=== PATIENT | female | born 1990 | race African-American/Black ===

== ENCOUNTER 2016-12-22 14:47 | Emergency (ER) | payer OTHER ==
[~2016-12-22] VITALS: Ht 165.1 cm; Wt 61.4 kg
[2016-12-22] MEDS ORDERED: NS 1,000 ML IV ONE (15:15)
[2016-12-22 15:35] LABS: BASO # 0.1 K/mm3 (0.0-0.2); BASO % 1.4 % (0.0-1.0); EOS # 0.2 K/mm3 (0.0-0.50); EOS % 2.2 % (0.0-3.0); LARGE UNSTAINED CELL # 0.2 K/mm3 (0.0-0.4); LARGE UNSTAINED CELL % 2.8 % (0.0-4.0); LYMPH # 2.3 K/mm3 (1.5-6.5); LYMPH % 31.7 % (24.0-44.0); MEAN CORPUSCULAR HGB CONC 33.3 g/dl (32.0-36.5); MONO # 0.3 K/mm3 (0.0-0.8); MONO % 3.5 % (0.0-5.0); NEUTROPHILS # 4.2 K/mm3 (1.8-7.7); NEUTROPHILS % 58.4 % (36.0-66.0); PLATELET COUNT, AUTOMATED 282 k/mm3 (150-450); WHITE BLOOD COUNT 7.1 K/mm3 (4.0-10.0)
[2016-12-22 15:48] LABS: CONTROL LINE HCG INT CTR LINE PRESENT
[2016-12-22 15:53] LABS: ANION GAP 5 MEQ/L (8-16); BLOOD UREA NITROGEN 11 MG/DL (7-18); CALCIUM LEVEL 9.1 MG/DL (8.5-10.1); CARBON DIOXIDE LEVEL 30 MEQ/L (21-32); CHLORIDE LEVEL 105 MEQ/L (98-107); CREATININE FOR GFR 0.74 MG/DL (0.55-1.02); GLOMERULAR FILTRATION RATE > 60.0 (>60); GLUCOSE, FASTING 79 MG/DL (70-105); POTASSIUM SERUM 3.9 MEQ/L (3.5-5.1); SODIUM LEVEL 140 MEQ/L (136-145)
[2016-12-22 16:58] VITALS: BP 137/89
--- NOTE | 2016-12-22 19:13 | ECGEPIP ---
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
== END 2016-12-22 17:00 | disposition home or self-care (01) ==
LOC: EDBD 14:47 → M ED 14:47
DX: R55 Syncope and collapse (principal)

== ENCOUNTER 2017-10-12 18:48 | Emergency (ER) | payer OTHER ==
[2017-10-12 19:37] LABS: KETONE, URINE AUTO RFX NEGATIVE (NEGATIVE); LEUKOCYTE ESTERASE UR AUTO RFX NEGATIVE (NEGATIVE); MUCUS, URINE RFX SMALL (NEGATIVE); NITRITE, URINE AUTO RFX NEGATIVE (NEGATIVE); RBC, URINE AUTO RFX 1 /HPF (0-3); SPECIFIC GRAVITY UR AUTO RFX 1.021 (1.002-1.035); SQUAM EPITHELIAL CELL UR AURFX 1 /HPF (0-6); WBC, URINE AUTO RFX 2 /HPF (0-3)
[2017-10-12] MEDS: METOCLOPRAMIDE INJ 10MG/2ML VIAL (J2765) IV (20:30)
[2017-10-12] MEDS: diphenhydrAMINE INJ 50MG/ML VIAL (J1200) IV (20:30)
[2017-10-12] MEDS: NS 1,000 ML IV (20:33)
[2017-10-12 20:35] LABS: BASO % 0.4 % (0.0-1.0); EOS # 0.2 10^3/uL (0.0-0.50); EOS % 3.5 % (0.0-3.0); HEMATOCRIT 37.5 % (36.0-47.0); HEMOGLOBIN 12.4 g/dl (12.0-15.5); IMMATURE GRANULOCYTE % 0.2 % (0-3.0); LYMPH # 2.2 10^3/uL (1.5-6.5); LYMPH % 41.1 % (24.0-44.0); MEAN CORPUSCULAR HEMOGLOBIN 27.3 pg (27.0-33.0); MEAN CORPUSCULAR HGB CONC 33.1 g/dl (32.0-36.5); MEAN CORPUSCULAR VOLUME 82.4 fl (80.0-96.0); MONO # 0.4 10^3/uL (0.0-0.8); MONO % 7.6 % (0.0-5.0); NEUTROPHILS # 2.6 10^3/uL (1.8-7.7); NEUTROPHILS % 47.2 % (36.0-66.0); PLATELET COUNT, AUTOMATED 305 10^3/uL (150-450); RED BLOOD COUNT 4.55 10^6/uL (4.00-5.40); RED CELL DISTRIBUTION WIDTH 13.4 % (11.5-14.5); WHITE BLOOD COUNT 5.4 10^3/uL (4.0-10.0)
[2017-10-12 21:16] LABS: ANION GAP 8 MEQ/L (8-16); BLOOD UREA NITROGEN 12 MG/DL (7-18); CALCIUM LEVEL 8.8 MG/DL (8.5-10.1); CARBON DIOXIDE LEVEL 25 MEQ/L (21-32); CHLORIDE LEVEL 105 MEQ/L (98-107); CREATININE FOR GFR 0.78 MG/DL (0.55-1.30); GLOMERULAR FILTRATION RATE > 60.0 (>60); GLUCOSE, FASTING 75 MG/DL (70-100); HCG, SERUM QUANTITATIVE 1154 MIU/ML; SODIUM LEVEL 138 MEQ/L (136-145)
== END 2017-10-12 23:45 | disposition home or self-care (01) ==
LOC: M ED 18:48
DX: O21.9 Vomiting of pregnancy, unspecified (principal); O26.891 Other specified pregnancy related conditions, first trimester; O34.81 Maternal care for other abnormalities of pelvic organs, first trimester; N83.201 Unspecified ovarian cyst, right side; O99.89 Other specified diseases and conditions complicating pregnancy, childbirth and the puerperium; N94.9 Unspecified condition associated with female genital organs and menstrual cycle; O99.331 Smoking (tobacco) complicating pregnancy, first trimester; F17.210 Nicotine dependence, cigarettes, uncomplicated; Z3A.00 Weeks of gestation of pregnancy not specified
CPT/HCPCS: J1200

== ENCOUNTER 2017-10-24 15:45 | Emergency (ER) | payer OTHER ==
[2017-10-25] MEDS ORDERED: ACETAMINOPHEN 650 MG SUPP As Ordered (22:33)
[2017-10-25] MEDS ORDERED: BUPIVACAINE HCL 0.25% 30 ML VIAL As Ordered (22:33)
== END 2017-10-24 16:55 | disposition left against medical advice (07) ==
LOC: M ED 15:45
DX: Z53.29 Procedure and treatment not carried out because of patient's decision for other reasons (principal)

== ENCOUNTER 2017-10-25 18:12 | Day surgery (SDC) | payer OTHER ==
[2017-10-25] MEDS ORDERED: fentaNYL 250 MCG/5 ML INJECTION (J3010) As Ordered ×2 (22:26)
[2017-10-25] MEDS ORDERED: PROPOFOL 200 MG/20 ML VIAL As Ordered ×4 (22:27)
[2017-10-25] MEDS ORDERED: MIDAZOLAM INJ 2 MG/2 ML VIAL (J2250) As Ordered ×2 (22:27)
[2017-10-25] MEDS ORDERED: ONDANSETRON 4MG/2ML VIAL (J2405) As Ordered ×2 (22:27)
[2017-10-25] MEDS ORDERED: dexameTHASONE 4 MG/ML 1ML VIAL (J1100) As Ordered ×4 (22:27)
[2017-10-25] MEDS ORDERED: LIDOCAINE 2% INJ 100 MG/5 ML SDV (FOR ANES.) As Ordered ×2 (22:27)
[2017-10-25] MEDS ORDERED: ROCURONIUM BROMIDE 50 MG/5 ML VIAL As Ordered ×2 (22:27)
[2017-10-25] MEDS ORDERED: KETOROLAC 60 MG/2 ML VIAL (J1885) As Ordered ×2 (22:28)
[2017-10-25] MEDS ORDERED: NEOSTIGMINE 10 MG/10 ML VIAL (J2710) As Ordered ×2 (22:28)
[2017-10-25] MEDS ORDERED: GLYCOPYRROLATE INJ 0.2 MG/ML 2 ML VIAL As Ordered ×2 (22:28)
[2017-10-26] MEDS ORDERED: ONDANSETRON 4MG/2ML VIAL (J2405) As Ordered ×2 (00:08)
[2017-10-26] MEDS: ONDANSETRON 4MG/2ML VIAL (J2405) IV ×2 (00:15)
[2017-10-26] MEDS ORDERED: HYDROMORPHONE HCL 0.5 MG/ 0.5 ML SYRINGE (J1170 PER 1) IV ×2 (00:15)
[2017-10-26] MEDS: LR 1,000 ML IV ×2 (00:15)
[2017-10-26] MEDS ORDERED: fentaNYL 100 MCG/2 ML INJECTION (J3010) As Ordered ×2 (00:25)
[2017-10-26] MEDS ORDERED: PERCOCET 5MG/325MG TAB As Ordered ×2 (00:25)
[2017-10-26] MEDS: fentaNYL 100 MCG/2 ML INJECTION (J3010) IV ×6 (00:30→00:40)
[2017-10-26] MEDS: PERCOCET 5MG/325MG TAB PO ×2 (00:30)
[2017-10-26] MEDS ORDERED: KETOROLAC 30 MG/ML VIAL (J1885) IV ×2 (00:45)
[2017-10-26] MEDS ORDERED: IBUPROFEN 800 MG TAB PO ×2 (00:45)
[2017-10-26 03:06] LABS: ALBUMIN/GLOBULIN RATIO 1.05 (1.00-1.93); ALKALINE PHOSPHATASE 53 U/L (45-117); ALT/SGPT 20 U/L (12-78); ANION GAP 6 MEQ/L (8-16); AST/SGOT 14 U/L (7-37); BILIRUBIN,TOTAL 0.2 MG/DL (0.2-1.0); BLOOD UREA NITROGEN 15 MG/DL (7-18); CARBON DIOXIDE LEVEL 27 MEQ/L (21-32); CHLORIDE LEVEL 104 MEQ/L (98-107); CREATININE FOR GFR 0.74 MG/DL (0.55-1.30); GLOMERULAR FILTRATION RATE > 60.0 (>60); GLUCOSE, FASTING 83 MG/DL (70-100); HCG, SERUM QUANTITATIVE 2772 MIU/ML; LIPASE 240 U/L (73-393); POTASSIUM SERUM 4.1 MEQ/L (3.5-5.1); SODIUM LEVEL 137 MEQ/L (136-145); TOTAL PROTEIN 7.8 GM/DL (6.4-8.2)
[2017-10-26 04:14] LABS: BASO % 0.5 % (0.0-1.0); EOS # 0.2 10^3/uL (0.0-0.50); EOS % 3.9 % (0.0-3.0); HEMATOCRIT 38.1 % (36.0-47.0); HEMOGLOBIN 12.5 g/dl (12.0-15.5); IMMATURE GRANULOCYTE % 0.2 % (0-3.0); LYMPH # 2.3 10^3/uL (1.5-6.5); LYMPH % 39.3 % (24.0-44.0); MEAN CORPUSCULAR HEMOGLOBIN 27.2 pg (27.0-33.0); MEAN CORPUSCULAR HGB CONC 32.8 g/dl (32.0-36.5); MONO # 0.5 10^3/uL (0.0-0.8); MONO % 7.6 % (0.0-5.0); NEUTROPHILS # 2.9 10^3/uL (1.8-7.7); NEUTROPHILS % 48.5 % (36.0-66.0); PLATELET COUNT, AUTOMATED 319 10^3/uL (150-450); RED BLOOD COUNT 4.59 10^6/uL (4.00-5.40); RED CELL DISTRIBUTION WIDTH 13.9 % (11.5-14.5)
[2017-10-26 04:32] LABS: APPEARANCE, URINE CLEAR (CLEAR); BACTERIA, URINE AUTO 1+ (NEGATIVE); BILIRUBIN, URINE AUTO NEGATIVE (NEGATIVE); BLOOD, URINE BLOOD NEGATIVE (NEGATIVE); COLOR, URINE YELLOW (YELLOW); GLUCOSE, URINE (UA) AUTO NEGATIVE (NEGATIVE); KETONE, URINE AUTO NEGATIVE (NEGATIVE); LEUKOCYTE ESTERASE, URINE AUTO TRACE (NEGATIVE); MUCUS, URINE SMALL (NEGATIVE); NITRITE, URINE AUTO NEGATIVE (NEGATIVE); PROTEIN, URINE AUTO NEGATIVE (NEGATIVE); RBC, URINE AUTO 1 /HPF (0-3); SPECIFIC GRAVITY URINE AUTO 1.018 (1.002-1.035); SQUAMOUS EPITHELIAL CELL UR AU 1 /HPF (0-6); UROBILINOGEN, URINE AUTO 0.2 mg/dL (0.0-2.0); WBC, URINE AUTO 4 /HPF (0-3)
== END 2017-10-26 09:15 | disposition home or self-care (01) ==
LOC: M ED 18:12 → M PED 10-26 09:15 → M OPCLIPED 10-26 → M PED 10-26 01:00 → M ED 10-26 → M OPCLIPED 10-26 → M PED 10-26 → M ED 10-26 01:00 → M OPCLIPED 18:13 → M ED 22:55 → M PED 10-26 01:00 → M OPCLIPED 10-26 09:15
DX: O00.102 Left tubal pregnancy without intrauterine pregnancy (principal)
CPT/HCPCS: 59150

== ENCOUNTER 2018-04-05 08:18 | Emergency (ER) | payer OTHER | END 2018-04-05 09:10 | disposition home or self-care (01) | LOC: M ED 08:18 | DX: J06.9 Acute upper respiratory infection, unspecified (principal); H50.811 Duane's syndrome, right eye; H50.812 Duane's syndrome, left eye; Z79.3 Long term (current) use of hormonal contraceptives | CPT/HCPCS: 99282 ==

== ENCOUNTER 2018-06-17 11:23 | Emergency (ER) | payer OTHER ==
[~2018-06-17] VITALS: Ht 165.1 cm; Wt 70.5 kg
[~2018-06-17 11:23] MED LIST: IBUP1TAB7 PO; REGL10TA6 PO
[2018-06-17 11:55] LABS: AMORPHOUS SEDIMENT SMALL (NEGATIVE); APPEARANCE, URINE CLEAR (CLEAR); BACTERIA, URINE AUTO NEGATIVE (NEGATIVE); BILIRUBIN, URINE AUTO NEGATIVE (NEGATIVE); BLOOD, URINE BLOOD 3+ (NEGATIVE); COLOR, URINE STRAW (YELLOW); GLUCOSE, URINE (UA) AUTO NEGATIVE (NEGATIVE); KETONE, URINE AUTO NEGATIVE (NEGATIVE); LEUKOCYTE ESTERASE, URINE AUTO NEGATIVE (NEGATIVE); NITRITE, URINE AUTO NEGATIVE (NEGATIVE); PROTEIN, URINE AUTO NEGATIVE (NEGATIVE); RBC, URINE AUTO 54 /HPF (0-3); SPECIFIC GRAVITY URINE AUTO 1.012 (1.002-1.035); SQUAMOUS EPITHELIAL CELL UR AU 1 /HPF (0-6); UROBILINOGEN, URINE AUTO 0.2 mg/dL (0.0-2.0); WBC, URINE AUTO 2 /HPF (0-3)
[2018-06-17] MEDS ORDERED: NS 1,000 ML IV ONE (12:15)
[2018-06-17 12:34] LABS: BASO % 0.5 % (0.0-1.0); EOS # 0.2 10^3/uL (0.0-0.50); EOS % 4.3 % (0.0-3.0); HEMATOCRIT 37.5 % (36.0-47.0); HEMOGLOBIN 12.1 g/dl (12.0-15.5); LYMPH # 1.7 10^3/uL (1.5-6.5); LYMPH % 44.2 % (24.0-44.0); MEAN CORPUSCULAR HEMOGLOBIN 26.7 pg (27.0-33.0); MEAN CORPUSCULAR HGB CONC 32.3 g/dl (32.0-36.5); MEAN CORPUSCULAR VOLUME 82.6 fl (80.0-96.0); MONO # 0.4 10^3/uL (0.0-0.8); MONO % 9.7 % (0.0-5.0); NEUTROPHILS # 1.6 10^3/uL (1.8-7.7); PLATELET COUNT, AUTOMATED 317 10^3/uL (150-450); RED BLOOD COUNT 4.54 10^6/uL (4.00-5.40); WHITE BLOOD COUNT 3.9 10^3/uL (4.0-10.0)
[2018-06-17 12:49] LABS: INR 1.05; PARTIAL THROMBOPLASTIN TIME 25.5 SECONDS (25.4-37.6); PROTHROMBIN TIME 13.9 SECONDS (12.1-14.4)
[2018-06-17 13:01] LABS: BILIRUBIN,TOTAL 0.3 MG/DL (0.2-1.0)
[2018-06-17 13:02] LABS: ALBUMIN 3.5 GM/DL (3.2-5.2); BILIRUBIN,DIRECT 0.1 MG/DL (0.0-0.2); TOTAL PROTEIN 7.2 GM/DL (6.4-8.2)
[2018-06-17 13:04] LABS: BLOOD UREA NITROGEN 10 MG/DL (7-18); CALCIUM LEVEL 8.8 MG/DL (8.5-10.1); CARBON DIOXIDE LEVEL 25 MEQ/L (21-32); CHLORIDE LEVEL 107 MEQ/L (98-107); CREATININE FOR GFR 0.77 MG/DL (0.55-1.30); GLOMERULAR FILTRATION RATE > 60.0 (>60); GLUCOSE, FASTING 80 MG/DL (70-100); HCG, SERUM QUANTITATIVE < 1.0 MIU/ML; POTASSIUM SERUM 4.4 MEQ/L (3.5-5.1); SODIUM LEVEL 140 MEQ/L (136-145)
[2018-06-17 14:04] LABS: CHLAMYDIA DNA AMPLIFICATION NEGATIVE (NEGATIVE); GC DNA AMPLIFICATION NEGATIVE (NEGATIVE)
[2018-06-17 15:39] VITALS: BP 132/82
--- NOTE | 2018-06-18 07:43 | REP ---
PELVIC AND ENDOVAGINAL PROBE ULTRASOUND: 06/17/2018. Clinical history: Pelvic pain, heavy vaginal bleeding. The patient states last LMP was 06/07/2018. Findings: No prior study. Transabdominal and endovaginal probes were utilized. Bladder measured 8.9 x 8.5 x 5.9 cm, well filled. Uterus anteverted and not enlarged and measures 10.1 x 3.8 x 5.6 cm. There is no contour abnormality. The central endometrial echogenic stripe is centrally located and has a homogeneous appearance measuring 3 mm in thickness. No uterine mass or contour abnormality. Subtle uterine heterogeneity may be present. No free fluid in the cul-de-sac. Visualized cervix unremarkable. The right ovary 4 x 1.3 x 1.7 cm and the left ovary 3.1 x 1.3 x 1.9 cm. Neither ovary shows solid or cystic mass on Doppler tracing. There are a few subcentimeter follicles. No adjacent free fluid to either ovary. Doppler tracing shows resistive index 0.63 for the right ovary and 0.63 for the left ovary, normal. Impression: 1. Uterus not enlarged and with normal central echogenic endometrial stripe. No contour abnormality or discrete uterine mass. 2. Ovaries normal in size with a few small follicles as anatomic normal findings. Normal blood flow on color and Doppler tracings, no torsion. No mass, no free fluid. Electronically Signed by Laith Lopez MD 06/18/2018 01:01 P
== END 2018-06-17 15:50 | disposition home or self-care (01) ==
LOC: M ED 11:23
DX: N94.6 Dysmenorrhea, unspecified (principal); F17.210 Nicotine dependence, cigarettes, uncomplicated

== ENCOUNTER 2018-12-31 11:09 | Emergency (ER) | payer OTHER ==
[~2018-12-31] VITALS: Ht 165.1 cm; Wt 75.0 kg
[2018-12-31] MEDS ORDERED: PREN29TA4 PO (11:24)
[2018-12-31 12:15] LABS: APPEARANCE, URINE CLEAR (CLEAR); BACTERIA, URINE AUTO 1+ (NEGATIVE); BILIRUBIN, URINE AUTO NEGATIVE (NEGATIVE); BLOOD, URINE BLOOD NEGATIVE (NEGATIVE); COLOR, URINE AMBER (YELLOW); GLUCOSE, URINE (UA) AUTO NEGATIVE (NEGATIVE); KETONE, URINE AUTO NEGATIVE (NEGATIVE); LEUKOCYTE ESTERASE, URINE AUTO TRACE (NEGATIVE); MUCUS, URINE SMALL (NEGATIVE); NITRITE, URINE AUTO NEGATIVE (NEGATIVE); PROTEIN, URINE AUTO NEGATIVE (NEGATIVE); RBC, URINE AUTO 2 /HPF (0-3); SPECIFIC GRAVITY URINE AUTO 1.015 (1.002-1.035); SQUAMOUS EPITHELIAL CELL UR AU 2 /HPF (0-6); UROBILINOGEN, URINE AUTO 0.2 mg/dL (0.0-2.0); WBC, URINE AUTO 10 /HPF (0-3)
[2018-12-31] MEDS ORDERED: NS 1,000 ML IV ONE (12:45)
--- NOTE | 2018-12-31 12:50 | REP ---
FIRST TRIMESTER ULTRASOUND: Real-time sonographic of gravid uterus is performed utilizing transabdominal technique. There is a single living intrauterine gestation, estimated gestational age is 7 weeks 3 days based on crown-rump length of 12 mm, EDC 08/16/2019. heart rate 153 beats per minute. There is no subchorionic hemorrhage. There is no evidence of ovarian torsion, blood flow is seen in each ovary with duplex Doppler evaluation. Electronically Signed by Ishmael Sanchez MD 01/02/2019 07:46 A
[2018-12-31] MEDS ORDERED: ACETAMINOPHEN TAB 650MG DOSE (2X325MG) PO ONE (13:30)
[2018-12-31] MEDS ORDERED: ONDANSETRON 4MG/2ML VIAL (J2405) IV ONE (13:30)
[2018-12-31 14:12] LABS: BASO % 0.3 % (0.0-1.0); EOS # 0.1 10^3/uL (0.0-0.50); EOS % 1.6 % (0.0-3.0); HEMATOCRIT 40.2 % (36.0-47.0); HEMOGLOBIN 13.2 g/dl (12.0-15.5); LYMPH # 2.5 10^3/uL (1.5-6.5); LYMPH % 36.6 % (24.0-44.0); MEAN CORPUSCULAR HEMOGLOBIN 27.6 pg (27.0-33.0); MEAN CORPUSCULAR HGB CONC 32.8 g/dl (32.0-36.5); MEAN CORPUSCULAR VOLUME 84.1 fl (80.0-96.0); MONO # 0.5 10^3/uL (0.0-0.8); MONO % 7.5 % (0.0-5.0); NEUTROPHILS # 3.7 10^3/uL (1.8-7.7); NEUTROPHILS % 53.9 % (36.0-66.0); PLATELET COUNT, AUTOMATED 321 10^3/uL (150-450); RED BLOOD COUNT 4.78 10^6/uL (4.00-5.40); WHITE BLOOD COUNT 6.8 10^3/uL (4.0-10.0)
[2018-12-31 14:35] LABS: BLOOD UREA NITROGEN 8 MG/DL (7-18); CALCIUM LEVEL 9.6 MG/DL (8.5-10.1); CARBON DIOXIDE LEVEL 28 MEQ/L (21-32); CHLORIDE LEVEL 104 MEQ/L (98-107); CREATININE FOR GFR 0.65 MG/DL (0.55-1.30); GLOMERULAR FILTRATION RATE > 60.0 (>60); GLUCOSE, FASTING 62 MG/DL (70-100); HCG, SERUM QUANTITATIVE 63524 MIU/ML; POTASSIUM SERUM 3.9 MEQ/L (3.5-5.1); SODIUM LEVEL 138 MEQ/L (136-145)
[2018-12-31 15:22] VITALS: BP 120/71
[2018-12-31 17:27] LABS: CHLAMYDIA DNA AMPLIFICATION NEGATIVE (NEGATIVE); GC DNA AMPLIFICATION NEGATIVE (NEGATIVE)
[2019-01-02] MEDS ORDERED: MACR100C43 PO (10:35)
== END 2018-12-31 15:26 | disposition home or self-care (01) ==
LOC: M ED 11:09
DX: O20.0 Threatened abortion (principal); O99.281 Endocrine, nutritional and metabolic diseases complicating pregnancy, first trimester; Z3A.01 Less than 8 weeks gestation of pregnancy; Z87.891 Personal history of nicotine dependence; Z79.899 Other long term (current) drug therapy
CPT/HCPCS: 36415; 76801; 80048; 81001; 84702; 85025; 86850; 86900; 86901; 87088; 87186; 87210; 87491; 87591; 93976; 96361; 96374; 99284; J2405

== ENCOUNTER 2019-02-03 03:52 | Emergency (ER) | payer OTHER ==
[~2019-02-03] VITALS: Ht 162.6 cm; Wt 78.4 kg
[~2019-02-03 03:52] MED LIST changes: +MACR100C43 PO; +PREN29TA4 PO
[2019-02-03 04:16] LABS: BASO % 0.4 % (0.0-1.0); EOS # 0.2 10^3/uL (0.0-0.5); EOS % 2.5 % (0.0-3.0); HEMATOCRIT 33.7 % (36.0-47.0); HEMOGLOBIN 11.2 g/dl (12.0-15.5); LYMPH # 2.6 10^3/uL (1.5-5.0); LYMPH % 32.3 % (24.0-44.0); MEAN CORPUSCULAR HEMOGLOBIN 27.6 pg (27.0-33.0); MEAN CORPUSCULAR HGB CONC 33.2 g/dl (32.0-36.5); MONO # 0.7 10^3/uL (0.0-0.8); MONO % 8.6 % (0.0-5.0); NEUTROPHILS # 4.5 10^3/uL (1.5-8.5); NEUTROPHILS % 55.9 % (36.0-66.0); PLATELET COUNT, AUTOMATED 292 10^3/uL (150-450); RED BLOOD COUNT 4.06 10^6/uL (4.00-5.40)
[2019-02-03] MEDS ORDERED: ACETAMINOPHEN 500 MG TAB PO ONE (05:30)
[2019-02-03 05:38] VITALS: BP 117/74
--- NOTE | 2019-02-03 06:31 | REPVR ---
EXAM: US First Trimester, Transabdominal and US Duplex Artery or Vein, Ovaries, Limited EXAM DATE/TIME: 02/03/2019 5:07 AM CLINICAL HISTORY: 28 years old, female; Lmp or gestational age (in weeks): 12 w 4d; Antepartum complications; Bleeding; ; Additional info: Bld TECHNIQUE: Imaging protocol: Real-time transabdominal obstetrical ultrasound of the maternal pelvis and a first trimester , less than 14 weeks 0 days, with image documentation. Real-time duplex ultrasound scan of the arterial or venous flow of the ovaries with B-mode, color Doppler flow and spectral waveform analysis, limited Duplex. COMPARISON: US PELVIC NON-OB COMPLETE 06/17/2018 2:36 PM FINDINGS: GESTATION: Gestation: Single viable intrauterine gestation. Heart rate: heart rate is 155 beats per minute. Placenta: Unremarkable. No subchorionic bleed. Amniotic fluid: Amniotic and chorionic fluid are normal for gestational age. BIOMETRY: Estimated gestational age: Sonographic estimated gestational age is 12 weeks 5 days. Mcadoo-Rump length: Mcadoo-rump length of the pole is 6.4 cm. Estimated due date: Estimated date of delivery is 08/13/2019. MATERNAL: Uterus: Unremarkable. Cervix: Unremarkable. Right adnexa: Right ovary measures 2.2 x 3 x 1 cm. Normal arterial waveform. Left adnexa: Left ovary measures 2.2 x 3 x 1.7 cm. Normal arterial waveform. Suggestion of a 1.4 cm left ovarian corpus luteal cyst. Intraperitoneal: No intraperitoneal free fluid. IMPRESSION: Single viable intrauterine gestation 12 weeks 5 days in age. No evidence of ovarian torsion bilaterally. Suggestion of a 1.4 cm left ovarian corpus luteal cyst. Electronically signed by: Rod Phelps On 02/03/2019 06:31:10 AM
== END 2019-02-03 05:40 | disposition home or self-care (01) ==
LOC: M ED 03:52
DX: O20.0 Threatened abortion (principal); Z3A.12 12 weeks gestation of pregnancy

== ENCOUNTER 2019-03-29 11:27 | Emergency (ER) | payer OTHER ==
[~2019-03-29] VITALS: Ht 165.1 cm; Wt 81.8 kg
[2019-03-29] MEDS ORDERED: ACET1TAB55 PO (12:01)
[2019-03-29 12:18] LABS: BASO % 0.3 % (0.0-1.0); EOS # 0.1 10^3/uL (0.0-0.5); EOS % 1.4 % (0.0-3.0); HEMATOCRIT 36.5 % (36.0-47.0); HEMOGLOBIN 11.8 g/dl (12.0-15.5); LYMPH # 2.1 10^3/uL (1.5-5.0); LYMPH % 26.9 % (24.0-44.0); MEAN CORPUSCULAR HEMOGLOBIN 27.4 pg (27.0-33.0); MEAN CORPUSCULAR HGB CONC 32.3 g/dl (32.0-36.5); MEAN CORPUSCULAR VOLUME 84.9 fl (80.0-96.0); MONO # 0.6 10^3/uL (0.0-0.8); MONO % 7.6 % (0.0-5.0); NEUTROPHILS # 4.9 10^3/uL (1.5-8.5); NEUTROPHILS % 63.5 % (36.0-66.0); PLATELET COUNT, AUTOMATED 346 10^3/uL (150-450); WHITE BLOOD COUNT 7.7 10^3/uL (4.0-10.0)
[2019-03-29 12:36] LABS: BLOOD UREA NITROGEN 8 MG/DL (7-18); CALCIUM LEVEL 8.7 MG/DL (8.5-10.1); CARBON DIOXIDE LEVEL 23 MEQ/L (21-32); CHLORIDE LEVEL 106 MEQ/L (98-107); CREATININE FOR GFR 0.68 MG/DL (0.55-1.30); GLOMERULAR FILTRATION RATE > 60.0 (>60); GLUCOSE, FASTING 59 MG/DL (70-100); POTASSIUM SERUM 3.8 MEQ/L (3.5-5.1); SODIUM LEVEL 137 MEQ/L (136-145)
--- NOTE | 2019-03-29 13:14 | REP ---
Duplex extremity venous ultrasound: Left lower extremity. History: Lower extremity pain posterior leg pain on the left. Rule out DVT. Findings: The deep veins are anechoic and fully compressible from the groin to the popliteal fossa in the left lower extremity. Color flow imaging is homogeneous. Spectral Doppler interrogation demonstrates intact respiratory variation in flow and normal manual augmentation of flow. There is no evidence of deep vein thrombosis. Impression: Negative left lower extremity duplex venous ultrasound. No evidence of deep vein thrombosis. Electronically Signed by Curtis Goldstein MD 03/29/2019 01:06 P
[2019-03-29 13:46] VITALS: BP 122/64
== END 2019-03-29 13:49 | disposition home or self-care (01) ==
LOC: M ED 11:27
DX: O99.89 Other specified diseases and conditions complicating pregnancy, childbirth and the puerperium (principal); R25.2 Cramp and spasm; Z3A.21 21 weeks gestation of pregnancy

== ENCOUNTER 2019-07-15 16:42 | Outpatient (CLI) | payer OTHER ==
[~2019-07-15] VITALS: Ht 167.6 cm; Wt 89.4 kg
[~2019-07-15 16:42] MED LIST changes: +ACET1TAB55 PO
[2019-07-15] MEDS ORDERED: FLUCONAZOLE 50MG TABLET PO ONE (18:00)
--- NOTE | 2019-07-15 18:02 | IPNPDOC ---
Text Note Date of Service The patient was seen on 07/15/19. NOTE Patient is a G4, P2 at 35.5 weeks with complaints of abdominal pain. This began in the lower abdomen with a ball sensation and then stretched up towards her right upper side. She stated that it was first with the hardening of her stomach like a contraction, but then has resolved with drinking water. She continues to have the right-sided pain but it is less. She has milky white discharge without itching. No vaginal bleeding. No loss of fluid that she is aware of. Good movement with strong kicking movement before this pain. FHT: 130s, reactive, no decelerations, initially 2 contractions, then no contractions. Category 1 with reassuring fetus. Abdomen nontender, gravid, not firm. Sterile speculum exam: White thick discharge, nitrazine negative, positive brooke under the microscope. Sterile vaginal exam: Closed cervical os. Urine dip: Negative. I discussed with the patient that she has a brooke infection which we will treat with Diflucan 150 mg by mouth once. This might give caused some uterine irritability, which also cause some ligament pain. This might be the result pain, which she is experiencing. There is no evidence of labor at this time. She was given precautions and told to keep hydrating. Noa Crews MD Jul 15, 2019 18:02
== END 2019-07-15 18:20 | disposition home or self-care (01) ==
LOC: M LDO 16:42
PROVIDERS: ATTEND Obstetrics & Gynecology
DX: O23.593 Infection of other part of genital tract in pregnancy, third trimester (principal); B37.3 Candidiasis of vulva and vagina; Z3A.35 35 weeks gestation of pregnancy
CPT/HCPCS: 59025; G0378; G0463

== ENCOUNTER 2019-08-22 12:26 | Inpatient (IN) | payer OTHER ==
[2019-08-22] VITALS (9 sets, daily range): BP systolic 108–135; BP diastolic 62–82
[~2019-08-22] VITALS: Ht 167.6 cm; Wt 91.6 kg
[2019-08-22] MEDS ORDERED: VITA-158 PO (12:50)
[2019-08-22 14:21] LABS: HEMATOCRIT 29.5 % (36.0-47.0); HEMOGLOBIN 9.4 g/dl (12.0-15.5); MEAN CORPUSCULAR HEMOGLOBIN 26.1 pg (27.0-33.0); MEAN CORPUSCULAR HGB CONC 31.9 g/dl (32.0-36.5); MEAN CORPUSCULAR VOLUME 81.9 fl (80.0-96.0); PLATELET COUNT, AUTOMATED 313 10^3/uL (150-450); WHITE BLOOD COUNT 7.2 10^3/uL (4.0-10.0)
--- NOTE | 2019-08-22 14:21 | HPEPDOC ---
Obstetrical History & Physical General Date of Admission Aug 22, 2019 at 12:26 Primary Care Physician: A History of Present Illness Patient is a 29 yo @ 41+1wks gestation presents for IOL. patient without concerns. denies regular ctx/lof/vb. +FM. Chief Complaint: Induction of labor Age: 29 : 4 Term: 2 Pre-term: 0 Abortions: 1 Livin Care Care: Good Care Dating Final EDC: Aug 14, 2019 Final EDC for Daily Update: Aug 14, 2019 Final EDC by: LMP, 1st trimester (US) Past Medical History Past Obstetrical History : Past Obstetrical History: Multigravida ( x 2, ectopic x 1) Complications: No DIRECTOR SERVICE History: No pertinent history Past Medical History Medical History denies Surgical History: Other (ECTOPIC SURGERY) Social History Marital Status: Family situation: Spouse/partner home * Smoker: non-smoker Alcohol: Denies Imunizations Tdap status: current Allergies Coded Allergies: No Known Allergies (Unverified , 08/22/19) Medications Scheduled Ascorbic Acid (Vitamin C) 500 Mg Tablet, 1 TAB PO BID Prenat 115/Iron Fum/Folic/Dss ( 19 Tablet) 1 Each Tablet, 1 TAB PO DAILY Physical Examination Physical Examination GENERAL: Alert and oriented times three. BREAST: . ABDOMEN: Gravid and non-tender to touch. FETUS: Is vertex (VTX) by sterile vaginal examination (SVE), fetus is vertex (VTX) by Silviano. HEART RATE: Regular rate and rhythm. LUNGS: Clear to auscultation (CTA). EXTREMITIES: No edema/erythema/tenderness EFW: 3800gm Laboratory Data 24H LABS Laboratory Tests 2 08/22/19 13:22: Serology Scanned Report Hepatitis B Testing Pertinent Laboratoy Data Blood Type: B+ RBC Antibody Screen: Negative HIV: Negative Rapid Plasma Reagin: Nonreactive Rubella: Immune Chlamydia/Gonorrhea: Negative Group B Streptococcus: Negative Glucose Tolerance Test: 96 Anatomy Ultrasound Placenta Location: Posterior Normal Anatomy: Yes Placenta Previa: No Vaginal Examination Dilation: 1cm Effacement: 30% Station: -3 Cervical Consistency: Medium Cervical Position: Posterior Presentation: Cephalic presentation Assessment Heart Rate (FHR): 140 Variability: Moderate Accelerations: Positive Decelerations: None Tocometer Contractions: No Assessment/Plan Assessment patient is a 29 yo @ 41+1 wks gestation presents for IOL. Discussed with patient regarding cervical ripening with cytotec and colon bulb and IOL with oxytocin and arom as needed. External and need for internal monitors explained. Risks of emergent delivery, infection, blood transfusion and associated risks, use of forceps or vacuum for operative vaginal delivery and its associated risks, and episiotomy explained. Plan Admit and orient. 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 Diet: regular then clears in active labor Group B Streptococcus (GBS) [negative]. Labs and intravenous (IV) per unit protocol. cytotec, colon bulb, oxytocin and arom as needed for IOL anesthesia consult pelvis proven ZULAY WHITE DO Aug 22, 2019 13:55
[2019-08-22] MEDS: miSOPROStol 25 MCG 1/4 TAB (S0191) PO SCH ×2 (14:30→18:33)
[2019-08-22] MEDS: LR 1,000 ML IV SCH ×2 (14:30→23:00)
[2019-08-22] MEDS ORDERED: miSOPROStol 50 MCG 1/2 TAB (S0191) PO SCH (21:00)
--- NOTE | 2019-08-22 22:05 | IPNPDOC ---
Text Note Date of Service The patient was seen on 08/22/19. NOTE Patient received cytotec 25mcg x 2. feeling mild contractions. fht: 140/mod viry/pos accel/no decel toco: ctx q 4mins ce: /-3 a/p patient in latent labor. start pit and titrate to effect. recheck in 6hrs. sooner as indicated. Le, DO VS,Cambone, I+O VS, Fishbone, I+O Laboratory Tests 08/22/19 14:06 Vital Signs Date Time Temp Pulse Resp B/P (MAP) Pulse Ox O2 Delivery O2 Flow Rate FiO2 08/22/19 18:34 102 127/71 (89) 08/22/19 14:39 18 ZULAY WHITE DO Aug 22, 2019 22:05
[2019-08-22] MEDS ORDERED: OXYTOCIN DRIP 30 UNITS in IV 1 EA IV SCH (22:15)
[2019-08-23] VITALS (52 sets, daily range): BP systolic 98–142; BP diastolic 50–90
[2019-08-23] MEDS ORDERED: BUTORPHANOL 2 MG/ML INJ (J0595) IV ONE
[2019-08-23] MEDS ORDERED: PROMETHAZINE INJ 25 MG/ML VIAL (J2550) IV ONE
--- NOTE | 2019-08-23 01:55 | IPNPDOC ---
Text Note Date of Service The patient was seen on 08/23/19. NOTE patient with painful contractions. Received stadol and phenergan for pain me dication. Reported SROM around 0030. pit: 4mU/min fht: 135/mod viry/pos accel/no decel toco: ctx q 2-4mins ce: 75/-1, forebag arom, clear a/p patient in latent labor. continue to titrate pit to effect. okay for epidural per patient request. recheck in 4 hrs. sooner as needed. DO Ashleigh VS,Josee, I+O VS, Fishbone, I+O Laboratory Tests 08/22/19 14:06 Vital Signs Date Time Temp Pulse Resp B/P (MAP) Pulse Ox O2 Delivery O2 Flow Rate FiO2 08/23/19 00:09 18 08/22/19 18:34 102 127/71 (89) ZULAY WHITE DO Aug 23, 2019 01:55
[2019-08-23] MEDS ORDERED: FENTANYL 2MCG/ML ROPIVACAINE 0.2% IN 0.9% NACL 100ML IVBAG As Ordered ONE (02:05)
[2019-08-23] MEDS ORDERED: EPIDURAL COMMENT XX SCH (04:00)
[2019-08-23] MEDS ORDERED: diphenhydrAMINE INJ 50MG/ML VIAL (J1200) IV PRN (04:00)
[2019-08-23] MEDS ORDERED: REFRIGERATOR IV KEYS XX PRN (04:00)
[2019-08-23] MEDS ORDERED: EPIDURAL/PCA KEYS XX PRN (04:00)
[2019-08-23] MEDS ORDERED: ePHEDrine SULFATE 25 MG/5 ML(5MG/ML) SYRINGE IV PRN (04:00)
[2019-08-23] MEDS ORDERED: NALOXONE INJ 0.4 MG/1 ML VIAL (J2310) IV PRN (04:00)
[2019-08-23] MEDS ORDERED: ONDANSETRON 4MG/2ML VIAL (J2405) IV PRN (04:00)
[2019-08-23] MEDS ORDERED: LACTATED RINGER'S 1000 ML IV PRN (04:00)
[2019-08-23] MEDS ORDERED: FENTANYL/ROPIVACAINE/NACL BAG 100 ML EPIDURAL SCH (04:00)
[2019-08-23 10:41] LABS: CORD GAS ABE V -2.6; CORD GAS HCO3 V 22.4 MEQ/L; CORD GAS O2 SAT V 53.6 %; CORD GAS PCO2 V 39.8 mmHg; CORD GAS PH V 7.369 UNITS; CORD GAS PO2 V 25.1 mmHg; CORD GAS SBC V 21.3 MEQ/L; CORD GAS TCO2 V 23.7 MEQ/L
[2019-08-23 10:43] LABS: CORD GAS ABE A -1.4; CORD GAS HCO3 A 26.3 MEQ/L; CORD GAS O2 SAT A < 15.0 %; CORD GAS PCO2 A 57.1 mmHg; CORD GAS PH A 7.282 UNITS; CORD GAS PO2 A 11.9 mmHg; CORD GAS TCO2 A 28.1 MEQ/L
[2019-08-23] MEDS ORDERED: ACETAMINOPHEN TAB 650MG DOSE (2X325MG) PO PRN (11:00)
[2019-08-23] MEDS ORDERED: MEASLES,MUMPS,RUBELLA VACCINE INJ (MMR-II) (90707) SC SCH (11:00)
[2019-08-23] MEDS ORDERED: OXYTOCIN DRIP 30 UNITS in IV 1 EA IV ONE (11:00)
[2019-08-23] MEDS ORDERED: METHYLERGONOVINE MALEATE 0.2 MG TAB PO PRN (11:00)
[2019-08-23] MEDS ORDERED: IBUPROFEN 600 MG TAB PO PRN (11:00)
[2019-08-23] MEDS ORDERED: DIBUCAINE 1% OINTMENT 30GM TOP PRN (11:00)
[2019-08-23] MEDS ORDERED: DOCUSATE SODIUM 100 MG CAP PO PRN (11:00)
[2019-08-23] MEDS ORDERED: ACETAMINOPHEN 500 MG TAB PO PRN (11:00)
[2019-08-23] MEDS ORDERED: MOM 30ML SUSPENSION UDC PO PRN (11:00)
[2019-08-23] MEDS ORDERED: RHOGAM 300 MCG (1500 IU) INJ (J2790) IM SCH (11:00)
[2019-08-23] MEDS ORDERED: ANUSOL HC CREAM 30GM TOP PRN (11:00)
[2019-08-23] MEDS: IBUPROFEN 800 MG TAB PO PRN ×2 (12:47→23:21)
[2019-08-23] MEDS ORDERED: OXYTOCIN INJ 10 UNITS/ML VIAL (J2590) IV ONE (13:00)
--- NOTE | 2019-08-23 18:43 | DN ---
DATE: 08/23/2019 This is a 29-year-old 4, para 2, admitted for induction of labor at 41-1 weeks' of gestation with epidural in place, spontaneous vaginal delivery over intact perineum, a live female infant, 7 pounds 15 ounces, 3590 grams, scores of 9 and 9 at one and five minutes respectfully. Cord around the neck times one loose. Arterial pH 7.28, base excess -1.4, venous pH 7.36, base excess -2.6. RISK FACTORS: She has anemia but other than that unremarkable. Placenta delivered spontaneously thereafter. Three-vessel cord, membranes and tissues intact. Uterus contracted well down on the Pitocin. The anterior, posterior and lateral argueta were intact. Sphincter was tight. The patient and baby tolerating the procedure well.
[2019-08-24 05:55] LABS: HEMATOCRIT 28.5 % (36.0-47.0); HEMOGLOBIN 9.2 g/dl (12.0-15.5); MEAN CORPUSCULAR HEMOGLOBIN 26.2 pg (27.0-33.0); MEAN CORPUSCULAR HGB CONC 32.3 g/dl (32.0-36.5); MEAN CORPUSCULAR VOLUME 81.2 fl (80.0-96.0); PLATELET COUNT, AUTOMATED 263 10^3/uL (150-450); RED BLOOD COUNT 3.51 10^6/uL (4.00-5.40); WHITE BLOOD COUNT 12.4 10^3/uL (4.0-10.0)
[2019-08-24 06:00] VITALS: BP 121/69
[2019-08-24] MEDS ORDERED: PROC1CRE5 TOP (07:37)
[2019-08-24] MEDS ORDERED: IBUP80TA PO (07:37)
[2019-08-24] MEDS ORDERED: DOCU100C16 PO (07:37)
[2019-08-24] MEDS ORDERED: DIBU10OI TOP (07:37)
[2019-08-24] MEDS ORDERED: PRENATAL VITAMINS CHEWABLE TABLET PO SCH (09:00)
--- NOTE | 2019-08-24 09:03 | DSES ---
DATE OF ADMISSION: 08/22/2019 DATE OF DISCHARGE: This lady is a 29-year-old, 4, now para 3, was admitted for induction of labor at 41 and 1 weeks of gestation, had a spontaneous vaginal delivery of a live female , 7 pounds 15 ounces (3590 grams) score of 9 and 9 at one and five minutes, respectively. Cord was around neck once loose. Arterial pH 7.28, base excess -1.4. Venous pH 7.36, base excess -2.6. She suffers from longstanding anemia. Her admitting hemoglobin was 9.4, hematocrit 29.5, and platelets were 313. Discharge hemoglobin 9.2, hematocrit 28.5, and platelets were 263. We discussed phlebitis, cystitis, mastitis, endometritis and cellulitis, diet, exercise, pain management, perineal, breast and wound care. The rest examination unremarkable. Normocephalic, atraumatic. Neck full range of motions. Pupils equal and reactive to light. Distal pulses symmetric. No evidence of deep venous thrombosis (DVT), pulmonary embolism (PE) or superficial phlebitis. Chest is clear bilaterally bases. No wheezes or rhonchi. No costovertebral angle (CVA) tenderness. Abdomen soft, uterus two below, lochia is moderate. Four quadrant bowel sounds are noted. No rashes, lesions or pruritus. No arthralgia or myalgia. No complaint joint pain. No complaint cough, wheezes, shortness of breath or dyspnea on exertional. No nausea, vomiting, diarrhea or constipation. No urgency or frequency. Her admitting hemoglobin as mentioned was 9.4, hematocrit 29.5, and platelets were 313. Discharge hemoglobin 9.2, hematocrit 28.5, and platelets were 263 and she is asymptomatic. Her vital signs her blood pressure is 121/69, respirations 20, pulse 86, and temperature is 98.4. Medications were dispensed at [facility]. She has a 6 week checkup with [facility]. All questions were answered. Breast feeding is going well.
[2019-08-24] MEDS: IBUPROFEN 800 MG TAB PO PRN (09:37)
== END 2019-08-24 14:50 | disposition home or self-care (01) | DRG 807 ==
LOC: M LDI 12:26 → M OBS 08-23 12:14
PROVIDERS: ADMIT Obstetrics & Gynecology; ATTEND Obstetrics & Gynecology
PROC: 3E0P7GC Introduction of Other Therapeutic Substance into Female Reproductive, Via Natural or Artificial Opening (ICD-10-PCS; 2019-08-22)
PROC: 10E0XZZ Delivery of Products of Conception, External Approach (ICD-10-PCS; principal; 2019-08-23)
DX: O48.0 Post-term pregnancy (principal); Z37.0 Single live birth; Z3A.41 41 weeks gestation of pregnancy; O69.81X0 Labor and delivery complicated by cord around neck, without compression, not applicable or unspecified; O99.02 Anemia complicating childbirth; D64.9 Anemia, unspecified

== ENCOUNTER 2020-05-24 08:23 | Emergency (ER) | payer OTHER ==
[~2020-05-24] VITALS: Ht 165.1 cm; Wt 86.0 kg
[~2020-05-24 08:23] MED LIST changes: +DIBU10OI TOP; +DOCU100C16 PO; +IBUP80TA PO; +PROC1CRE5 TOP; +VITA-158 PO
[2020-05-24 08:24] VITALS: BP 132/64
[2020-05-24] MEDS ORDERED: NS 1,000 ML IV ONE (09:15)
[2020-05-24] MEDS ORDERED: KETOROLAC 30 MG/ML 1ML VIAL IV ONE (09:45)
[2020-05-24 09:48] LABS: BASO % 0.2 % (0.0-1.0); EOS # 0.1 10^3/uL (0.0-0.5); HEMOGLOBIN 12.2 g/dl (12.0-15.5); LYMPH % 45.5 % (24.0-44.0); MEAN CORPUSCULAR HEMOGLOBIN 25.8 pg (27.0-33.0); MEAN CORPUSCULAR HGB CONC 31.3 g/dl (32.0-36.5); MEAN CORPUSCULAR VOLUME 82.6 fl (80.0-96.0); MONO # 0.4 10^3/uL (0.0-0.8); MONO % 9.1 % (0.0-5.0); NEUTROPHILS # 1.8 10^3/uL (1.5-8.5); NEUTROPHILS % 42.2 % (36.0-66.0); PLATELET COUNT, AUTOMATED 355 10^3/uL (150-450); RED BLOOD COUNT 4.72 10^6/uL (4.00-5.40); WHITE BLOOD COUNT 4.3 10^3/uL (4.0-10.0)
[2020-05-24 10:16] LABS: BILIRUBIN,DIRECT 0.1 MG/DL (0.0-0.2); BILIRUBIN,TOTAL 0.6 MG/DL (0.2-1.0); TOTAL PROTEIN 7.8 GM/DL (6.4-8.2)
--- NOTE | 2020-05-24 11:02 | REP ---
INDICATION: moderate pelvic pain, irreg vag bleeding COMPARISON: 06/17/2018 TECHNIQUE: Transabdominal pelvic ultrasound followed by transvaginal examination for better evaluation of the endometrium and adnexa with color Doppler evaluation of the ovaries. FINDINGS: Bladder is partially collapsed/under distended. Normal anteverted uterus measures 8.9 x 5.1 x 6.4 cm. The endometrial complex measures 3.2 mm thickness. No discrete uterine or endometrial abnormalities are appreciated. Bilateral ovaries are normal in appearance and vascularity without evidence for torsion. Right ovary measures 3.2 x 1.3 x 2.2 cm; R I = 0.54. Left ovary measures 3.5 x 2.6 x 2.5 cm; R I = 0.61. No pelvic fluid or adnexal mass lesion IMPRESSION: Normal pelvic ultrasound. <Electronically signed by Blair Hardy > 05/24/20 1050
[2020-05-24 11:03] LABS: CHLAMYDIA DNA AMPLIFICATION NEGATIVE (NEGATIVE); GC DNA AMPLIFICATION NEGATIVE (NEGATIVE)
== END 2020-05-24 11:21 | disposition home or self-care (01) ==
LOC: M ED 08:23
DX: N93.8 Other specified abnormal uterine and vaginal bleeding (principal)
CPT/HCPCS: 76856; 80047; 80076; 81001; 83690; 84702; 85025; 87210; 87661; 96361; 96374; 99283; J1885

== ENCOUNTER 2020-06-05 05:20 | Emergency (ER) | payer OTHER ==
[~2020-06-05] VITALS: Ht 165.1 cm; Wt 86.5 kg
[2020-06-05 05:21] VITALS: BP 116/72
[2020-06-05] MEDS ORDERED: ERYTHROMYCIN OPHTH OINT OS ONE (06:15)
[2020-06-05] MEDS ORDERED: LORATADINE 10 MG TAB PO ONE (06:15)
[2020-06-05] MEDS ORDERED: BENA25CA4 PO (06:16)
[2020-06-05] MEDS ORDERED: ERYT5OIN25 OS (06:16)
== END 2020-06-05 06:35 | disposition home or self-care (01) ==
LOC: M ED 05:20
DX: H01.00B Unspecified blepharitis left eye, upper and lower eyelids (principal); H10.89 Other conjunctivitis; H50.89 Other specified strabismus